=== PATIENT | female | born 1985 | race Caucasian/White ===

== ENCOUNTER 2022-03-25 08:00 | Outpatient (RCR) | payer MEDICARE, MEDICAID, SELFPAY ==
--- NOTE | 2022-03-25 10:10 | BH.SGPN.GN ---
Behaviors/Verbalizations/Mental Status: []Eye contact is fair. Alert and oriented. Motor activity is appropriate. Appearance is casual. grooming is appropriate. Speech is Appropriate. Mood is dysthymic. Affect is constricted. Thoughts are linear and logical. No evidence of psychosis or hallucinations. Client Response/Progress/Benefit: []Client active participate AEB listening attentively to others and providing contributions throughout. The group identified barriers to managing emotions such as unable to identify the emotion, negative self-talk, catastrophizing, jumping to conclusions, personalizing, and reading other?s body language. Client stated she often doesn't know how to express her emotions. Client engaged in activity, able to manage emotions in the moment. Client benefited from session to gain understanding on the importance of managing emotions to improve daily functioning. Client will continue IOP to increase healthy coping skills, challenge negative thoughts, and prevent decompensation.
--- NOTE | 2022-03-28 10:05 | BH.SGPN.GN ---
Behaviors/Verbalizations/Mental Status: [] Eye contact is good. Motor activity is appropriate. Appearance is casual. Speech is Appropriate. Mood is anxious. Affect is congruent. Thoughts are linear and logical. No evidence of psychosis. Client Response/Progress/Benefit: [] Pt participated at times during the group discussions. Participated during interactive discussion on defining conflict (internal/external) and possible benefits to conflict. Attentive during psychoeducation on conflict styles and engaged during small group activity in which peers identified the benefits and consequences to each conflict style. Pt identified that her primary conflict style is avoidant and accommodating. Shared that it is challenging for ther to say no and will put on a mask that she is fine with everything which is exhausting. Benefited from increase awareness of the impact of conflict styles in mental health. Will continue in IOP to improve functioning, stabilze mood, and increase healthy coping. Narrative Note: []
--- NOTE | 2022-03-28 11:05 | BH.SGPN.GN ---
Behaviors/Verbalizations/Mental Status: []Pt alert and oriented, casually dressed and groomed. Eye contact good. Motor activity appropriate. Speech within normal limits. Affect congruent, mood depressed and anxious. Thoughts linear, logical, no signs of hallucinations or delusions. Client Response/Progress/Benefit: []Pt engaged in session AEB contributing to discussion and engaging in activity. Pt did well to review current conflict style and its impact on mental health. Attentive and taking notes during discussion on strategies for more effectively managing conflict in personal life.? Pt participated in activity and did well to talk through choices with peers. Pt given handout on fair fighting rules and identified that they want to work on reducing stonewalling with her supports and finding a way to compromise. ?Appeared to benefit from gaining strategies to help pt better manage conflict. Will continue IOP tx to gain healthy coping skills, reduce negative thinking patterns, and improve daily functioning. ? Narrative Note: []
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
--- NOTE | 2022-03-28 12:33 | BH.PSY.EVA_ITS ---
Initial Treatment Plan Patient Information Visit Information: ADMISSION DATE: EXPECTED LOS: 4-6 weeks Problems/Symptoms Problem #1:: Depression Symptom:: Sadness, anhedonia, guilt, hopelessness, worthlessness, passive thoughts of , passive suicidal ideation intermittent, thoughts of self- harm. Problem #2:: Anxiety Symptom:: Worry, rumination, panic attacks, nightmares
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
[2022-03-30 11:34] VITALS: BP 110/67; PULSE 73
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
== END 2022-04-06 23:59 ==
LOC: BHIOP 08:00
PROVIDERS: Referring Provider Psychiatry & Neurology Psychiatry; Visit Provider Psychiatry & Neurology Psychiatry
DX: F33.2 Major depressive disorder, recurrent severe without psychotic features (principal); F41.1 Generalized anxiety disorder; F43.10 Post-traumatic stress disorder, unspecified
CPT/HCPCS: S9480; 90834; 90853

== ENCOUNTER 2022-04-07 08:22 | Outpatient (RCR) | payer MEDICARE, MEDICAID, SELFPAY ==
[2022-04-07 00:43] VITALS: BP 110/67; PULSE 73
--- NOTE | 2022-04-11 11:37 | BH.COMM ---
Communication Note - Communication with Client Communication Note: Pt called this AM still ill. Due to her immune disorder small colds or infections can be very intense and last for longer periods than the average person. Informed her to keep us updated regarding her status.
--- NOTE | 2022-04-13 11:38 | BH.COMM_ITS ---
Communication Note - Communication with Client Communication Note: Pt called this AM stating that she was at urgent call last evening. She was given medications for sinus medication and possible bronchitis. Plan is to return to IOP on 04/18/22 is she is feeling better. If she cannot make it to IOP next week will discuss possibility of discharge with plan to re- admit when feeling better.
--- NOTE | 2022-04-18 10:00 | BH.SGPN.GN ---
Behaviors/Verbalizations/Mental Status: [] Eye contact is fair. Motor activity is appropriate. Appearance is casual. Speech is Appropriate. Mood is depressed. Affect is constricted. Thoughts are linear and logical. No evidence of delusions or hallucinations. Client Response/Progress/Benefit: [] Pt was an active participant in group discussions and activity. Attentive during psychoeducation and provided insight into obstacles in the way of mental wellness. Pt shared her picture depicting her current mental health reality with the group. She described her current reality as feeling like she is constantly pretending to be okay and feeling disconnected with others and her feelings. Pt's desired reality is feeling more connected with others, not having to pretend to feel, and feeling more stable. Pt identified barriers that get in the way of desired reality include: lack of self-care, poor boundaries, not feeling heard, toxic people, and using unhealthy coping skills. Benefited from taking look at current mental health state and obstacles for progress. Will continue in IOP to increase healthy coping skills, challenge negative thinking, and prevent decompensation.
--- NOTE | 2022-04-18 11:08 | BH.SGPN.GN ---
Behaviors/Verbalizations/Mental Status: []Pt alert and oriented, casually dressed and groomed. Eye contact good. Motor activity appropriate. Speech within normal limits. Affect constricted, mood stressed. Thoughts linear, logical, no signs of hallucinations or delusions. Client Response/Progress/Benefit: []Pt engaged during activity, encouraging peers and contributed as group brainstormed ideas on how to cope with internal barriers that keep pts stuck from moving towards goals. Able to identify barriers to desired reality. Identified barriers to current reality to include: lack of self-care, poor boundaries, fear of not being heard, and people pleasing. Pt wants to work on overcoming the barrier of lack of self-care by writing down things she used to do before having a kid and see if she would try these again. Benefited from group by identifying obstacles and solutions to desired reality.? Pt will continue IOP tx to prevent decompensation, increase awareness of healthy coping skills, and improve daily functioning. ? Narrative Note: []
--- NOTE | 2022-04-19 10:10 | BH.SGPN.GN ---
Behaviors/Verbalizations/Mental Status: [] Eye contact is good. Motor activity is appropriate. Appearance is casual. Speech is Appropriate. Mood is anxious. Affect is congruent. Thoughts are linear and logical. No evidence of psychosis. Client Response/Progress/Benefit: [] Pt was an active participant in group discussions and experiential activity. Attentive during psychoeducation. Pt provided input during discussion on types of social supports which included; family, friends, PCP, mental health providers, support groups, pets, ourselves, community classes, etc. Pt along with the group identified mental health benefits of social support which patient and group identified as; it can help with emotional release, help one to feel heard, validation, distraction, they can encourage us, provide motivation, provide accountability, and boost our mood. Pt along with peers also worked together to identify obstacles to utilizing support which included; feeling like one doesn't deserve support, past negative experiences, cognitive distortions, and avoidance/mood. Benefited from increased awareness of mental health benefits of social support and obstacles that prevent one from utilizing support. Will continue in IOP to prevent decompensation, stabilize mood, and increase healthy coping skills. Narrative Note: []
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
--- NOTE | 2022-04-20 10:10 | BH.SGPN.GN ---
Behaviors/Verbalizations/Mental Status: []Pt alert and oriented, casually dressed and groomed. Eye contact good. Motor activity appropriate. Speech within normal limits. Affect constricted, mood depressed and anxious. Thoughts linear, logical, no signs of hallucinations or delusions. Client Response/Progress/Benefit: []Pt was an active participant in group discussions. Participated with peers in experiential activity. Pt participated in an interactive discussion with peers in which they worked together to define what coping skills are. Group then identified unhealthy coping skills which included; isolating, sleeping to avoid, drugs and alcohol, and poor boundaries. Pt displayed insight that she struggles with making herself a priority which leads to lack of self-care and pt is learning that some of her old coping skills were unhealthy. Reflected that this adds more stress to pt?s life and worsens mental health symptoms. Benefited from increased awareness and education the benefits of having a healthy coping repertoire and consequences of unhealthy coping on mental health and relationships. Will continue IOP tx to prevent decompensation, gain healthy coping skills, and increase healthy boundaries. Narrative Note: []
--- NOTE | 2022-04-20 11:54 | PCM.BH.PN ---
Progress Note Progress Note: History of Present Illness/Interim History: The patient is a 37-year-old single, female with a history of PTSD, depression and anxiety who is seen in follow-up at the [facility] behavioral health IOP program. I last saw the patient 3 weeks ago and at that time we began slowly weaning her Cymbalta, starting her on Trental X, and planning to discontinue her Effexor later. The patient states that she missed the last week and a half due to an illness but feels that she is learning valuable skills in the IOP program. She is tolerating the Trental X well but did not start it until 12 days ago. She feels that she has less fatigue now and feels more awake during the day. She is feels that her mood is less depressed than it was before. She denies any hopelessness now. Her sleep has improved also. She is stressed lately because her mother is having mental health issues and her mother does not want to be left alone so the patient has to spend all her time with her mother. The patient states that she is planning to ask her brother to help with her mother. She denies any cutting since early March or thoughts of self-harm. She denies any suicidal ideation now. Still has occasional panic attacks. She denies also active suicidal ideation, homicidal ideation, hallucinations or delusions. Current Psychiatric Medications: [] Cymbalta 60 mg p.o. daily (decreased 3 weeks ago); Trintellix 5 mg p.o. daily (x12 days); Effexor XR 37.5 mg p.o. daily (plans to D see this in 2 days); BuSpar 30 mg p.o. as needed daily; Xanax 2 mg p.o. up to 2 times a day prescribed by outpatient provider. Mental Status Examination: [] The patient is a 37-year-old female who appears normal for stated age and is casually dressed and groomed with good hygiene. She continues to have a grayish-bluish hue in her periorbital areas bilaterally. She is ambulatory with a normal gait and has no psychomotor agitation or retardation. She is cooperative and pleasant during the interview. Eye contact is good and speech is normal rate and rhythm and fluent with no pressure. Mood is mildly depressed to moderately depressed. Affect is full and normal. Thought process is goal-directed and organized. Thought content: The patient feels hopeful for the future. There is no evidence of passive suicidal ideation. There is still occasional evidence of passive thoughts of but not every day. There is no evidence of active suicidal ideation, plan for suicide, homicidal ideation, hallucinations or delusions. Reality testing is intact. Insight is good. Impulsivity is moderate. Judgment is intact. Diagnoses: [] 1.Major depressive disorder, recurrent, severe without psychosis 2. PTSD 3. Generalized anxiety disorder 4. Primary support issues 5. Cluster B traits Plan: [] The patient will continue the IOP program at [facility] as the structure, support, education and group therapy will hopefully prevent worsening of the patient's symptoms that might require hospitalization. She felt safe during the interview and if it anytime she does not feel safe she will let us know or go to the emergency room. The risk, options, possible complications and side effects of the medications were again discussed with the patient including the possibility of withdrawal side effects when she discontinues her Effexor. The patient will follow the plan we outlined last appointment which includes discontinuing her Effexor in 2 days. I will see the patient in follow-up in 2 weeks and she will continue to follow-up with her outpatient providers. If she has withdrawal symptoms when stopping Effexor she will let us know and we will wean it more slowly.
--- NOTE | 2022-04-25 10:15 | BH.SGPN.GN ---
Behaviors/Verbalizations/Mental Status: []Client alert and oriented, casually dressed and groomed. Eye contact good. Motor activity appropriate. Speech within normal limits. Affect congruent, mood anxious. Thoughts linear, logical, no signs of hallucinations or delusions. Client Response/Progress/Benefit: []Client receptive to session AEB contributing to discussion, as well listening attentively to others, and taking notes. Worked with group to brainstorm the positive and negative aspects of stress on physical and mental health. Group did well to identify the benefits of stress as well as the impact of distress on performance, relationships, and mental health. Client struggled with internalizing information discussed; however, with further assistance client identified their personal top stressors as: family/caregiving responsibilities and finances. Client reports when the stress overflows client reacts with decreased self-care, isolation, and numbing herself. Client seemed to benefit from increased awareness of current stressors and impact stress has on mental health. Recommended to continue IOP tx to further improve stress management and healthy boundary setting, improve mental health sx management, and prevent decompensation. Narrative Note: []
--- NOTE | 2022-04-25 11:15 | BH.SGPN.GN ---
Behaviors/Verbalizations/Mental Status: []Pt alert and oriented, casually dressed and groomed. Eye contact good. Motor activity appropriate. Speech within normal limits. Affect congruent, mood calm. Thoughts linear, logical, no signs of hallucinations or delusions. Client Response/Progress/Benefit: []Pt engaged participant AEB listening attentively to others and contributing to discussion. Attentive during psychoeducation on the 4 A's of Coping with Stress (Avoid, Alter, Adapt, Accept). Participated in experiential activity in which group members had to utilize stress management skills in the moment. Pt did well to problem-solve and express ideas to peers. Pt engaged in review of the 4 A?s to reducing stress. Pt reported she would like to work on the stressor of poor self-care by altering her current approach of not engaging in self-care. pt stated she will start making herself shower and wash her hair. Benefited from processing in the moment stress management strategies and identifying new ways to cope with stress. Will continue in IOP tx to prevent decompensation, increase healthy boundaries and increase use of healthy coping.
--- NOTE | 2022-04-27 10:05 | BH.SGPN.GN ---
Behaviors/Verbalizations/Mental Status: []Eye contact is good. Motor activity is appropriate. Appearance is casual. Speech is Appropriate. Mood is anxious. Affect is congruent. Thoughts are linear and logical. No evidence of psychosis. Client Response/Progress/Benefit: []Pt participated during the group discussion. Attentive during psychoeducation and actively engaged during experiential activity. Participated during interactive discussion on aspects of fixed mindset. Group identified several aspects of fixed mindset which included; inflexible, belief that one cannot grow, absolute thinking, and all of one's skills, traits, and behaviors are set in stone and can't change. Pt did well in experiential activity in which they were given a seemingly impossible task and were asked to identify fixed thoughts that arose. Group then identified personal examples of fixed thinking in which pt shared personal fixed thoughts as: ?I?m too tired?, ?I don?t care?, and ?I?m never going to get better?. Benefited from increased understanding of personal fixed mindsets and how they can impact mental health. Will continue in IOP to prevent decompensation, continue to improve mood stability, and promote self-care and healthy boundary setting. Narrative Note: []
--- NOTE | 2022-04-27 11:05 | BH.SGPN.GN ---
Behaviors/Verbalizations/Mental Status: []Pt alert and oriented, casually dressed and groomed. Eye contact good. Motor activity appropriate. Speech within normal limits. Affect congruent, mood euthymic and anxious. Thoughts linear, logical, no signs of hallucinations or delusions. Client Response/Progress/Benefit: []Pt engaged during activity and discussion AEB providing some input, connecting with peers, as well as taking notes throughout. Pt did well to engage as group worked on identifying characteristics and benefits of adopting a growth mindset. Worked with fellow participants in reframing the example fixed thoughts into growth mindset thoughts. Reframed personal fixed thought of ?I don?t care about things? with growth mindset thought of ?I can get better and feel less overwhelmed? Benefitted from discussing benefits of growth mindset and brainstorming strategies for prompting growth-mindset. Pt is gaining many coping skills, but she continues to struggle with setting boundaries with her supports. Will continue IOP tx to reduce avoidance, increase self-esteem, and improve boundary setting Narrative Note: []
--- NOTE | 2022-04-27 14:54 | BH.MDN_ITS ---
Multi-Disciplinary Note - Note 45-min Individual Time Started:: 11:55 Date: 04/27/22 Purpose of session/treatment goals addressed:: To work on goal #1 & #2 of client's tx plan by challenging distorted thought patterns and setting small goals. Another goal was to review tx progress Eye Contact:: Good Motor Activity:: Appropriate Appearance:: Neat, Casual Speech:: Appropriate Mood:: Anxious Affect:: Congruent Thoughts:: Linear, Logical, Racing, No evidence of hallucinations/delusions noted Staff Interventions:: thought challenging, motivational interviewing, CBT techniques, strengths perspective, goal setting Client Response:: Client responded well to session, open to meeting with therapist. Client stated the relationship with her mother continues to be tense and her living environment is often stressful as client does not get a lot of self-care time due to mom?s current mental health needs. Client is worried that she will decompensate if she is not able to set a boundary soon and begin to either see improvements with her mother?s mental health or begin to receive more help with caregiving responsibilities. Discussed several attempts to engage her brother in caregiving; however, continues to struggle with being assertive with communicating her needs. Shared feeling she needs to make herself ?small? and not be a burden to others for most of her life. Discussed that this has led to going out of her way to ?people please? and do things for others but not ask for support in return. Shared that she has a desire to feel more comfortable with allowing herself to ?take up space? but struggles with not feeling selfish or as though she is inconveniencing others in doing so. Able to connect this with childhood medical needs and feeling she needs to ?repay the favor? for the amount of extra support she has had to ask for growing up. Did well to work with therapist on challenging these thoughts and identifying evidence against this. Able to recognize that she would not expect others to have to earn the ability to establish boundaries or make time for self-care. Identified a small goal of starting to ask for more support by making plans to ask her brother to come stay with her mother while client attends a [place] [employer] party with her boyfriend. Client and therapist spent remainder of session identifying supportive statements she can remind herself of to encourage following through with this goal. Risks/Concerns:: Client denies any active suicidal ideations, plan, or intent as of 04/27/22. Progress Toward Goals/Plan:: Client admits to some regression in symptoms over the past week due to family stress and self-reported lack of self-care. Client continues to have good attendance when feeling physically capable of attending group and is an active group member. Client does however continue to miss first group out of anxiety about sharing personal information with others. Willing to continue to work on this. Client often minimizes her mental health wins, as client is still functioning better and has been able to identify the importance of establishing and reinforcing healthy boundaries with her mother which is progress. Client continues to endorse low energy, negative self-talk, avoidance, and anxiety. Client will continue IOP tx to prevent further decompensation and increase the use of healthy coping skills. Time Stopped:: 12:40
--- NOTE | 2022-04-27 14:54 | BH.MTP_ITS ---
Treatment Plan Review Date of Admission:: 03/25/22 Date of Treatment Plan Review:: 04/27/22 Admitting Diagnoses:: 1. Major depressive disorder, recurrent, moderate. 2. PTSD. 3. Generalized anxiety disorder Current Diagnoses:: 1. Major depressive disorder, recurrent, moderate. 2. PTSD. 3. Generalized anxiety disorder Patient's Response to Treatment:: Pt has been mostly consistent with attendance, though has missed two weeks of sessions due to illness. She has also struggled with tardiness due to anxiety about being in the first group session. Pt is actively working on improving these areas. Engaged in individual counseling. Attentive in group counseling and active engagement. Pt continues to complete all homework provided and reports sharing what she learns with her supports. Status of Current Problems and Symptoms: Per pt self-report, she indicates a reduction in overall symptoms. Discussed increased insight into what is impacting her mental health and specific triggers/stressors maintaining depre ssive and anxious sx. Does reports some reduction of depression and anxiety. Pt also denies any active suicidal ideations in the past 2 weeks. Continues to report sx are impeding her daily functioning and continuing to cause tension in relationships however. Pt difficulties with communicating her mental health needs and setting boundaries may be significantly contributing to ongoing sx. Problem #1 Problem Name:: Depression, hopelessness, passive SI Status of Goals:: Pt has showed a reduction in depression, per her report. Pt has made progress on Obj1 and is able to identify 2-3 healthy skills to better manage her depressive sx; however, continues to struggle with consistent implementation and asserting her self-care needs. Progress on obj2 as she reports improved ability to identify and challenge negative thought patterns; however, current stressors continue to reinforce feelings of hopelessness and prevent client from making consistent progress in these areas. Team Recommendations:: maintain current goals and plan. Pt is learning healthy coping strategies however is still early in utilizing these skills consistently and effectively. Problem #2 Problem Name:: Anxiety, panic Status of Goals:: According to pt, she has seen some minimal reduction in anxiety, however this continues to be a primary stressor and is reinforced by pt current family stress. Obj1-She is able to identify triggers and coping skills, including grounding and thought challenge skills for managing anxiety. Pt however struggles with consistent implementation and focus on external stressors without yet addressing these stressors in a notable way continues to reinforce anxiety sx. Obj2- Pt has had psychoeducation on cognitive distortions and can identify her own distorted thinking patterns maintaining anxiety after the fact, though struggles in doing so in the moment and often needs assistance in identifying and processing these. Will continue to work on this. Team Recommendations:: Maintain current goals, continue to work on boundaries an d communication goals.
--- NOTE | 2022-04-28 10:10 | BH.SGPN.GN ---
Behaviors/Verbalizations/Mental Status: [] Eye contact is good. Motor activity is appropriate. Appearance is casual. Speech is Appropriate. Mood is anxious. Affect is congruent. Thoughts are linear and logical. No evidence of psychosis. Client Response/Progress/Benefit: [] Pt was an active participant in group discussions and experiential activity. Attentive during psychoeducation. Participated along with peers on working to define locus of control and provide examples of internal and external locus of control. Interactive discussion between group members, pt, and therapist on characteristics of internal locus of control which included; takes responsibility for actions, less influenced by others and increased confidence. Some characteristic identified by patient and peers for external locus of control included; others have more influence and control, decreased motivation to make changes if one believes that mood/thoughts/self-esteem are based on others. Active and engaged during experiential activity and was able to see correlations between activity and emotions/perspectives associated with internal vs external locus of control. Benefited from increased insight and awareness of internal vs external locus of control and how this could impact mental health. Will continue in IOP to prevent decompensation, increase healthy coping, improve functioning. Narrative Note: []
--- NOTE | 2022-04-28 11:05 | BH.SGPN.GN ---
Behaviors/Verbalizations/Mental Status: []Client alert and oriented, casually dressed and groomed. Eye contact good. Motor activity appropriate. Speech within normal limits. Affect congruent, mood anxious and euthymic. Thoughts linear, logical, no signs of hallucinations or delusions. Client Response/Progress/Benefit: []Client responded well to session, actively engaged during psychoeducation on circles of control including areas in which we have control, some influence, or concern but no control over in daily life. Client completed a worksheet in which they identified what areas their own current stressors may fall into. Client identified having most control over: the coping skills she tries and her reaction to stressors; some control over: relationships and the communication within them, boundaries, and ability to accomplish her goals; and no control over: [place] her mother deals with her own mental health issues. Group then worked together on identifying steps to begin using an internal locus of control when addressing current stressors. Client identified wanting to focus on more effectively being able to set healthy boundaries with her mom. Noted plans to do so by reminding herself it?s okay to say ?no? and by starting with establishing small boundaries. Client will continue IOP tx to improve mood stability, begin establishing healthier boundaries to improve anxiety management, and prevent decompensation. Narrative Note: []
--- NOTE | 2022-05-04 10:08 | BH.SGPN.GN ---
Behaviors/Verbalizations/Mental Status: []Pt alert and oriented, casually dressed and groomed. Eye contact good. Motor activity appropriate. Speech within normal limits. Affect congruent, mood stressed. Thoughts linear, logical, no signs of hallucinations or delusions. Client Response/Progress/Benefit: []Pt participated at times during the group discussions. Participated during interactive discussion on defining conflict (internal/external) and possible benefits to conflict. Attentive during psychoeducation on conflict styles and engaged during small group activity in which peers identified the benefits and consequences to each conflict style. Pt identified that their primary conflict styles as avoiding and accommodating. Pt reports seeing many drawbacks of these styles, but pt struggles with the guilt of asserting her needs and anxiety of addressing issues. Benefited from increased awareness of the impact of conflict styles in mental health. Will continue in IOP to reduce avoidance, increase skills to set healthy boundaries, and improve daily functioning. Narrative Note: []
--- NOTE | 2022-05-04 10:40 | PCM.BH.PN ---
Progress Note Progress Note: History of Present Illness/Interim History: Patient is a 37-year-old single female with a history of PTSD, depression and anxiety who is seen in follow-up at the [facility] behavioral health IOP program. I last saw the patient 2 weeks ago and at that time we continued the weaning of the Effexor and Cymbalta and initiation of Trental X. The patient discontinued her Effexor XR on April 22, 2022. She had some mild to moderate will withdrawal symptoms for the first few days but she did the symptoms completely resolved after 1 week. She feels that she is much less depressed than she was before and that the Trental X is helping her. She is tolerating the Trental X well. According to the staff the patient appears less anxious and is more engaged in the program. She has stressors remaining especially around her mother's health issues but she is learning coping skills to help with this. She states that she is coping with stress better and feels kind of like a new person. She still has occasional panic attacks but they are much less than before and she is able to control them. She denies passive thoughts of , thoughts of self-harm, suicidal ideation, homicidal ideation, hallucinations or delusions. Current Psychiatric Medications: [] Cymbalta 60 mg p.o. daily (decreased 5 weeks ago from 90 mg); Effexor XR discontinued after weaning on April 22, 2022; Trental X 5 mg p.o. daily (x26 days); BuSpar 30 mg p.o. as needed daily; Xanax 2 mg p.o. up to 2 times a day prescribed by outpatient provider. Mental Status Examination: [] Patient is a 37-year-old female who appears normal for stated age and is casually dressed and groomed with good hygiene. The grayish-bluish hue in her periorbital areas bilaterally remains. She is ambulatory with a normal gait and has no psychomotor agitation or retardation. She is cooperative and pleasant during the interview. Speech is normal rate and rhythm and fluent with no pressure. Eye contact is good. Mood is mildly depressed. Affect is full and normal. Thought process is goal-directed and organized. Thought content: The patient continues to feel hopeful for the future. There is no evidence of passive thoughts of , passive suicidal ideation, plan for suicide, homicidal ideation, hallucinations or delusions. Reality testing is intact. Insight is good. Impulsivity is moderate. Judgment is intact. Diagnoses: [] 1. Major depressive disorder, recurrent, moderate 2. PTSD 3. Generalized anxiety disorder 4. Cluster B traits 5. Primary support issues Plan: [] The patient will continue the IOP program at [facility] as the structure, support, education and group therapy will hopefully prevent worsening of the patient's symptoms. She felt safe during the interview and if it anytime she does not feel safe she will let us know or go to the emergency room. The risks, options, possible complications and side effects of the medications were again discussed with the patient and she understands accepts these. The patient agrees to decrease her Cymbalta to 30 mg p.o. daily for 2 weeks and then discontinue. She will also increase her Trintellix to 10 mg p.o. daily at the same day she decreases her Cymbalta. Prescription is sent in for the 10 mg dose of Trintellix. She will continue to follow-up with her outpatient providers and I will see the patient in follow-up in several weeks at the IOP program. Patient will be encouraged to slowly wean off her Xanax as the Trental X takes effect.
--- NOTE | 2022-05-04 11:02 | BH.MDN ---
Multi-Disciplinary Note - Note 45-min Individual Time Started:: 11:15 Time Stopped:: 12:05
== END 2022-05-07 23:59 ==
LOC: BHIOP 08:22
PROVIDERS: Referring Provider Psychiatry & Neurology Psychiatry; Visit Provider Psychiatry & Neurology Psychiatry
DX: F33.2 Major depressive disorder, recurrent severe without psychotic features (principal); F43.10 Post-traumatic stress disorder, unspecified; F41.1 Generalized anxiety disorder; Z79.899 Other long term (current) drug therapy
CPT/HCPCS: S9480; 90834; 90853

== ENCOUNTER 2022-05-10 07:28 | Outpatient (RCR) | payer MEDICARE, MEDICAID, SELFPAY ==
[2022-05-08 00:34] VITALS: BP 110/67; PULSE 73
--- NOTE | 2022-05-11 11:03 | BH.MDN ---
Multi-Disciplinary Note - Note 45-min Individual Time Started:: 11:46 Time Stopped:: 12:25
--- NOTE | 2022-05-11 11:59 | PCM.BH.PN ---
Progress Note Progress Note: History of Present Illness/Interim History: [] The patient is a 37-year-old single female with a history of PTSD, depression and anxiety who is seen in follow-up at the [facility] behavioral health IOP program. I last saw the patient 1 week ago and at that time we continued the slow process of weaning her Cymbalta and increasing her Trintellix. Her Trintellix was increased to 10 mg 1 week ago and her Cymbalta was decreased to 30 mg 1 week ago. The patient states that she is doing not very good. On 's Shayna the patient had an upsetting incident for her which ended in her picking up a knife in the kitchen and holding it to her throat. The patient states that she was originally just thinking of cutting and was getting on the back kitchen and get a knife and go cut in the bathroom due to an argument or discourse with her boyfriend where she felt he snapped at me and consequently she felt bad about herself. But she says spontaneously she picked up the knife and held it to her throat and was thinking about suicide. Her mother and boyfriend took the knife away from her and actually the patient admits that this incident resulted in them having a family meeting with her counselor and this has resulted in her brother offering to help the patient deal with her mother. Patient has to be home with her mother 28/11 because mother refuses to be alone and the boyfriend has to see the patient at the mother's house. Patient says that suicidal thoughts have resolved and she currently feels safe. She is tolerating the Trental X well. She denies passive thoughts of , homicidal ideation, hallucinations or delusions. She is not no longer having the suicidal ideation and thoughts of self-harm that she had on ' Shayna and has not had it since then. Current Psychiatric Medications: [] Cymbalta 30 mg p.o. daily (decreased 1 week ago and a continued weaning process); Effexor XR was discontinued on April 22, 2022 after weaning; Trintellix 10 mg p.o. daily (on this dose 1 week); BuSpar 30 mg p.o. as needed daily; (Xanax 2 mg up to 2 times a day prescribed by outpatient provider.) Mental Status Examination: [] The patient is a 37-year-old female who appears normal for stated age and is casually dressed and groomed with good hygiene. She is ambulatory with a normal gait and has no psychomotor agitation or retardation. She is cooperative during the interview. Eye contact is good and speech is normal rate and rhythm and fluent with no pressure. Mood is depressed. Affect is constricted and tearful at times. Thought process is goal-directed and organized. Thought content: There is no evidence of passive thoughts of , suicidal ideation, homicidal ideation, hallucinations or delusions. There is no evidence of thoughts of self-harm currently. Reality testing is intact. Insight is good. Impulsivity is moderate to high. Judgment is intact. Diagnoses: [] 1. Major depressive disorder, recurrent, moderate 2. PTSD 3. Generalized anxiety disorder 4. Strong cluster B traits 5. Primary support issues Plan: [] The patient will continue the IOP program at [facility] as the structure, support, education and group therapy will hopefully prevent worsening of the patient's symptoms which could require hospital admission. The patient felt safe during the interview and if it anytime she does not feel safe she will let us know or go to the emergency room. The risk, options, possible complications and side effects of medications were again discussed with the patient and she understands accepts these including the side effects of the weaning process. Due to the stress ongoing in the patient's current living situation patient was given the option of staying on the Cymbalta 30 mg p.o. daily for now for the next 3 or 4 weeks and then discontinue it. She will continue her Trintellix at 10 mg p.o. daily and we may increase at the next visit after she has been on it for at least 3 weeks. Refill prescription is sent in for 30 mg Cymbalta enough to get her for the next few weeks. She will continue to follow-up with her outpatient providers and I will see the patient in follow-up in 2 weeks. The plan is that the patient will be encouraged to slowly wean off of her Xanax once the Trental X takes effect. This will be done by her outpatient provider.
--- NOTE | 2022-05-12 10:05 | BH.SGPN.GN ---
Behaviors/Verbalizations/Mental Status: []Pt alert and oriented, casually dressed and groomed. Eye contact good. Motor activity appropriate. Speech within normal limits. Affect congruent, mood anxious. Thoughts linear, logical, no signs of hallucinations or delusions. Client Response/Progress/Benefit: []Pt was an active participant in group discussions. Attentive during psychoeducation and participated in interactive discussions in which group defined self-care, discussed the benefits to self-care, and identified common myths surrounding self-care. Pt shared that self-care has always been hard for her because she constantly takes care for others. Pt and peers broke into smaller group and worked together to bust the myths associated with self-care. Pt?s group worked on myths of self-care is selfish, you should be able to ?push through,? and self-care takes too much time. Benefited from increased awareness of the self-care and its benefits. Progress noted in pt?s increased resilience when pt experiences a setback. ?Will continue in IOP to reduce negative thinking patterns, improve boundary setting skills, and increase self-compassion. ? Narrative Note: []
--- NOTE | 2022-05-12 11:10 | BH.SGPN.GN ---
Behaviors/Verbalizations/Mental Status: []Pt alert and oriented, casually dressed and groomed. Eye contact good. Motor activity appropriate. Speech within normal limits. Affect congruent, mood anxious. Thoughts linear, logical, no signs of hallucinations or delusions. Client Response/Progress/Benefit: []Pt engaged participant AEB completing self-assessment worksheet and providing some input throughout discussion. Participated in group discussion on the various areas of self-care. Pt completed worksheet identifying current self-care practices and what self-care activities pt wants to start using. Pt selected psychological self-care to begin practicing more consistently. Pt plans to do this by learning or pursuing new or old hobbies. Appeared to benefit from completing the self-care evaluation and gaining insights into current self-care practices, as well as identifying areas in which she would like to improve upon. Will continue IOP tx to prevent decompensation, improve boundaries with supports, and improve ability to maintain mood stability.
--- NOTE | 2022-05-13 10:08 | BH.SGPN.GN ---
Behaviors/Verbalizations/Mental Status: []Pt alert and oriented, casually dressed and groomed. Eye contact good. Motor activity appropriate. Speech within normal limits. Affect congruent, mood stressed. Thoughts linear, logical, no signs of hallucinations or delusions. Client Response/Progress/Benefit: []Pt was engaged participant AEB pt listening attentively to others and nodding. Attentive during psychoeducation on communication styles. Assisted group with identifying barriers of effective communication which included: mind-reading, body language, communicating with behaviors, and being vague. Pt reports that she most often uses passive aggressive or passive communication. Pt shared that being passive results in pt feeling like a burden to others, resentment, and eventually pt exploding. Benefited from increased awareness of different communication barriers, styles, and the importance of communicating effectively to improve mental wellness. Will continue IOP tx to improve distress tolerance skills, reduce avoidance, and increase use of self-care skills. ? Narrative Note: []
--- NOTE | 2022-05-13 11:10 | BH.SGPN.GN ---
Behaviors/Verbalizations/Mental Status: []Client alert and oriented, casually dressed and appropriately groomed. Eye contact good. Motor activity appropriate. Speech WNL. Affect congruent, mood euthymic. Thoughts linear, logical, no signs of hallucinations or delusions. Client Response/Progress/Benefit: []Client responded well to session AEB client listening attentively to others and providing input during group discussion on the pay offs and costs of the different communication styles. Client able to connect how current communication style impacts mental health. Client engaged in activity, used assertive communication throughout in order to accomplish task. Connected with peers comments about importance of using assertive communication. Client reported she wants to work on being able to say no. Client seemed to benefit from increasing awareness of healthy strategies to improve communication. Will continue IOP tx to continue use of healthy coping, challenge distorted thoughts, and prevent decompensation.
--- NOTE | 2022-05-18 11:10 | BH.SGPN.GN ---
Behaviors/Verbalizations/Mental Status: []Client alert and oriented, casually dressed and groomed. Eye contact good. Motor activity appropriate. Speech within normal limits. Affect congruent, mood euthymic. Thoughts linear, logical, no signs of hallucinations or delusions. Client Response/Progress/Benefit: []Client was a active participant in group discussion AEB providing contributions throughout group and listening attentively to others. Client able to connect how current safety behaviors are reinforcing anxiety. Attentive during psychoeducation on anxiety management skills. The group practiced belly breathing and chair yoga in session. Engaged and attentive during group brainstorm of healthy anxiety reduction skills. Appeared to benefit from practicing in the moment coping skills and increasing repertoire of anxiety management skills. Client will continue IOP tx to improve daily functioning, improve ability to set and maintain healthy boundaries, and prevent decompensation.
--- NOTE | 2022-05-19 10:10 | BH.SGPN.GN ---
Behaviors/Verbalizations/Mental Status: []Pt alert and oriented, casually dressed and groomed. Eye contact good. Motor activity appropriate. Speech within normal limits. Affect congruent, mood anxious and euthymic. Thoughts linear, logical, no signs of hallucinations or delusions. Client Response/Progress/Benefit: []Pt responded well to session AEB taking notes throughout, providing input,and listening attentively to others. Pt was actively engaged throughout group activity identifying famous individuals and how they overcame failure to be successful. Pt helped group identify how fear of failure can impact mental health and relationships. Pt personally identified that fear of failure can lead to insecurity and a sense of losing oneself. Pt participated in experiential activity and used group for support as needed. Appeared to benefit from increased knowledge of fear of failure. ?Will continue IOP tx to prevent decompensation, challenge all or nothing thinking, and increase mood stability. ? Narrative Note: []
--- NOTE | 2022-05-19 13:49 | BH.MDN ---
Multi-Disciplinary Note - Note 30-min Individual Time Started:: : Date: 05/19/22 Time Stopped:: 11:
--- NOTE | 2022-05-24 10:10 | BH.SGPN.GN ---
Behaviors/Verbalizations/Mental Status: [] Eye contact is good. Motor activity is appropriate. Appearance is casual. Speech is Appropriate. Mood is euthymic. Affect is full. Thoughts are linear and logical. No evidence of psychosis. Client Response/Progress/Benefit: [] Pt was an active participant in group discussion. Attentive during psychoeducation. Engaged and participated in experiential activity. Pt along with peers. worked together to define pitfalls in relation to mental health. Group was able to identify several common examples of pitfalls which included; negative automatic thoughts, sad songs, isolation, not communicating, self-harm, impulsive spending, over-committing oneself, and self-sabotage. Able to correlate experiential activity and topic of pitfalls. Able to identify strategies to use in activity (as well as in life) to overcome or manage mental health pitfalls. Benefited from increased understanding of types of common pitfalls that impact mental health. Will be discharged from [facility] today. Narrative Note: []
--- NOTE | 2022-05-24 11:10 | BH.SGPN.GN ---
Behaviors/Verbalizations/Mental Status: []Pt alert and oriented, casually dressed and groomed. Eye contact good. Motor activity appropriate. Speech within normal limits. Affect congruent, mood euthymic. Thoughts linear, logical, no signs of hallucinations or delusions.? Client Response/Progress/Benefit: []Pt receptive of session, engaged throughout AEB pt?contributing to discussion, as well as taking notes.? Pt and group processed how the emotions and perspective of the group impacted the activity positively and negatively at times. Group worked together to identify different coping skills to help manage pitfalls. Pt identified pitfalls they struggle with such as?going ?too fast? and looking for quick fixes, pouring effort into people who do not want to change, and difficulty setting and maintaining boundaries.?Pt plans to work on these pitfalls by?continuing to reinforce her boundaries with her mother and utilizing self-care. Benefited from identifying personal pitfalls and strategies to overcome these pitfalls. Will discharge IOP tx today as pt has accomplished her tx goals and no longer meets criteria for IOP level of care.? Narrative Note: []
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
--- NOTE | 2022-05-24 12:17 | BH.IGGP_ITS ---
Aftercare Plan - Demographics Treatment End Date:: 05/24/22 Psychiatrist:: Carlota Troy Psychiatrist Office #:: [phone] [facility] Therapist:: Amy Bravo Therapist Phone #:: [phone] - Plan Details Progress/Aftercare Plan Details:: Pt has made significant strides since starting IOP as shown by her improved mood, reduced symptoms by 33% overall, no longer reporting passive suicidal ideations, and increased ability to manage negative thinking, relationship conflict, and daily stressors. Pt's depression decreased by 50% since admission and anxiety has decreased by 42%. When Pt started IOP she was experiencing significant anxiety and depression that was keeping pt from living life and impacting her functioning both at home and in her relationships. Now, Pt can catch and manage thoughts that reinforced anxiety, irritability, and guilt causing increased suicidal ideation. Pt not only has the ability to more effectively use healthy coping skills, she also reports she feels more confident in her ability to ask for her needs to be met, set boundaries, and in healthy decision making. Pt is focusing on her goals of continuing to gain more independence and practice self-care. Pt was highly active in both group and individual therapy sessions. Pt contributed to group discussions, offered emotional support to peers, and consistently followed through with her goals. In individual sessions, Pt was receptive to feedback, consistent with homework, and willing to push herself. Pt?s high motivation, willingness to challenge her perspective, and honesty were likely the reason for her significant progress. Pt plans to attend [facility] aftercare, as well as follow up with outpatient providers. Strategies for Success:: ?Opposite Action!!! ? do what will help you, even when your brain is saying don?t do it, even when it feels uncomfortable, even when you are tempted to take the easy or more comfortable way out. ?Setting and following through with boundaries with yourself and others ? remember not to take on things that may be causing you unnecessary extra stress. It?s okay to not fix things for others sometimes. You can still be a support to others and not take on everything for yourself. ?Continue to challenge negative thought patterns by trying to look at things from the other perspective, asking yourself ?Am I using a distortion?? or ?Is there another way to approach or think about this??. ?Keep reaching out to HEALTHY friends and supports! There are people who care and want to see you doing well! Remember, it?s okay to ask for help. We all need it from time to time. Remember, your supports are there for you to reach out to. ?Continue to make time for yourself! Self-care is marques to maintaining progress and staying level! This includes sometimes doing those hard things that may require setting boundaries of using opposite action. Remind yourself you deserve to take time to care for you AND ASK YOURSELF ?What would I be losing if I didn?t do this for myself??. ?Small steps to physical, mental, and emotional wellness. Check-in with yourself regularly in order to identify what may be stressing you out, allow yourself to take small breaks if you find yourself getting overwhelmed. Don?t forget to keep setting SMART goals! - Appointments Appointments/Referrals to Other Services:: Pt will follow up with her outpatient psychiatrist, Dr. Maddox, for ongoing medication management. Pt plans to attend [facility] aftercare, as well as follow up with outpatient counselor, Evangelina, at [facility] whom she sees weekly. - Medications Home Medications: Home Medications alprazolam 2 mg tablet (Xanax) 2 mg PO BID PRN PRN Anxiety 03/30/22 baclofen 10 mg tablet 10 mg PO TID PRN PRN Mouth Pain 03/30/22 buspirone 30 mg tablet 30 mg PO BID PRN PRN Anxiety 03/30/22 levothyroxine 137 mcg tablet 137 mcg PO DAILY 03/30/22 metoprolol tartrate 25 mg tablet 25 mg PO BREAKFAST 03/30/22 metoprolol tartrate 25 mg tablet 50 mg PO QHS 03/30/22 pregabalin 150 mg capsule (Lyrica) 150 mg PO QHS 03/30/22 pregabalin 150 mg capsule (Lyrica) 300 mg PO BREAKFAST 03/30/22 vortioxetine 10 mg tablet (Trintellix) 10 mg PO DAILY 30 days #30 tabs 05/04/22 duloxetine 30 mg capsule,delayed release (Cymbalta) 30 mg PO DAILY 30 days #30 caps 05/11/22
--- NOTE | 2022-05-25 09:47 | BH.COMM ---
Communication Note - Communication with Client Communication Note: Pt called in requesting IOP psychiatrist notes and d/c summary be sent to her outpatient psychiatrist Dr. Maddox. Pt gave verbal permission and fax number for provider.
== END 2022-05-24 12:09 | disposition home or self-care (01) ==
LOC: BHIOP 07:28
PROVIDERS: Referring Provider Psychiatry & Neurology Psychiatry; Visit Provider Psychiatry & Neurology Psychiatry
DX: F33.1 Major depressive disorder, recurrent, moderate (principal); F43.10 Post-traumatic stress disorder, unspecified; F41.1 Generalized anxiety disorder; Z79.899 Other long term (current) drug therapy
CPT/HCPCS: S9480; 90834; 90853

== ENCOUNTER 2022-06-16 08:00 | Outpatient (RCR) | payer MEDICARE, MEDICAID, SELFPAY ==
--- NOTE | 2022-06-16 14:00 | BH.SGPN.GN ---
Behaviors/Verbalizations/Mental Status: []Client alert and oriented, casually dressed. Eye contact good. Motor activity appropriate. Speech within normal limits. Affect full and bright, mood euthymic and anxious. Thoughts linear, logical, no signs of hallucinations or delusions. Client Response/Progress/Benefit: []Client receptive of session, engaged and providing supportive feedback throughout group. Reports feeling ?confused? today and shared this is related to ongoing trauma treatment she is doing. Reports she is meeting regularly with outpatient therapist and psychiatrist, and is taking medication as prescribed. Identified skills she has been using as opposite action, boundary setting, and positive self-talk. Client engaged in the discussion about self-love and worked with the group to identify strategies for increasing self-love. Reports wanting to work on self-love by reminding herself to ?forgive myself?. Seemed to benefit from reviewing treatment progress and strategies for managing current stressors, as well as learning about how to increase self-love. Client will continue in aftercare for ongoing maintenance and further skill development. Narrative Note: []
--- NOTE | 2022-06-16 14:00 | BH.COMM ---
Communication Note - Communication with Client Communication Note: Presented completed IOP and presents today to starting relapse prevention group which meets once weekly (1.5 hours) for 8 weeks. Case discussed with Dr. Henao with plan to admit with dx of F33.2
--- NOTE | 2022-06-23 14:00 | BH.SGPN.GN ---
Behaviors/Verbalizations/Mental Status: []Client alert and oriented, casually dressed and groomed. Eye contact good. Motor activity appropriate. Speech within normal limits. Affect congruent, mood euthymic and anxious. Thoughts linear, logical, no signs of hallucinations or delusions. Client Response/Progress/Benefit: []Receptive of session, reports feeling ?happy? today. Shared she has been attending regular outpatient counseling and psychiatry appointments, as well as maintaining medication compliance. Noted however struggling to maintain consistent with coping skill application, especially healthy boundaries and self-advocacy. Shared continuing to struggle with use of people pleasing to avoid conflict with supports. Insight into importance of consistent skill use. Engaged and attentive during discussion of vulnerability and benefits of practicing vulnerability. Shared being vulnerable has not been easy for her as she struggles to sit with uncomfortable emotions. Group discussed ways we avoid feeling vulnerable and how this negatively affects mental health and relationships. Appeared to benefit from group support and discussion reflecting on the positive impact vulnerability can have on mental health. Identified plans to challenge herself to speak up more about her mental health needs to supports as a way in which she could practice being vulnerable in the next week. Will continue IOP aftercare to promote gains and reinforce healthy coping skills. Narrative Note: []
--- NOTE | 2022-07-01 14:00 | BH.SGPN.GN ---
Behaviors/Verbalizations/Mental Status: []Pt alert and oriented, casually dressed and groomed. Eye good. Motor activity appropriate. Speech within normal limits. Affect congruent. Mood depressed, anxious. Thoughts linear, logical, no signs of hallucinations or delusions. Client Response/Progress/Benefit: []Pt responded well to session, attentive and engaged. Pt stated she saw her outpatient therapist this week and is scheduled to see psychiatrist in a couple of months. Pt stated this last week has been rough. Pt reported she feels like she hit rock bottom again. Pt shared she has chosen to move out of her mom's house because realized staying there was slowly killing me. Pt receptive to feedback and support from group. Encouraged by therapist to go back to basics of taking care of self and using her coping skills learned in IOP. Pt responded well to the discussion of gratitude and the benefits to mental health and relationships. Pt identified different things to focus on each day for the next 7 days to practice gratitude towards self and others. Pt shared she will practice reflecting on smell she loves, lesson learned, and positive people in her life to practice gratitude over the next week. Pt recommended ongoing IOP aftercare to promote gains made in IOP and reinforce healthy coping skills.
== END 2022-07-05 23:59 ==
LOC: BHOG 08:00
PROVIDERS: Referring Provider Psychiatry & Neurology Psychiatry; Visit Provider Psychiatry & Neurology Psychiatry
DX: F33.2 Major depressive disorder, recurrent severe without psychotic features (principal)
CPT/HCPCS: 90853

== ENCOUNTER 2022-07-06 06:34 | Outpatient (RCR) | payer MEDICARE, MEDICAID, SELFPAY | END 2022-08-02 13:16 | disposition home or self-care (01) | LOC: BHOG 06:34 | PROVIDERS: Referring Provider Psychiatry & Neurology Psychiatry; Visit Provider Psychiatry & Neurology Psychiatry | DX: F33.2 Major depressive disorder, recurrent severe without psychotic features (principal) ==

== ENCOUNTER → 2024-12-04 | Outpatient (CLI) | payer MEDICARE, MEDICAID, SELFPAY ==
--- NOTE | 2024-12-04 12:58 | US_ITS ---
PROCEDURE: ABD LIMITED W/ ELASTOGRAPHY REASON FOR EXAM: FATTY LIVER, ELEVATED LFTS COMPARISON: None. TECHNIQUE: Right upper quadrant abdominal ultrasound. [facility]inta ElastQ Imaging shear wave elastography for non-invasive assessment of liver tissue stiffness. Jacinta EPIQ Elite. FINDINGS: LIVER: Size: Unremarkable Length: 14.8 cm Echotexture: Diffusely echogenic suggesting fatty infiltration Contour: Normal Lesions: None identified Elastography: EQI Med: 11.1 kPa EQI Med Evan: 1.91 m/s IQR/Med: 26 %* GALLBLADDER: No stones sludge wall thickening or tenderness. COMMON BILE DUCT: Normal measuring 3.8 mm . PANCREAS: Normal Visualized portions of the right kidney are unremarkable. No right upper quadrant ascites. US/ABD Limited w/ Elastography IMPRESSION: MODERATE TO SEVERE HEPATIC FIBROSIS Fatty infiltration of the liver. Reference Values: SRU <1.37 m/s (5.7kPa): No to mild fibrosis 1.37 m/s - 2.2 m/s: Moderate to severe fibrosis >2.2 m/s (15kPa): Significant fibrosis / cirrhosis METAVIR Score F2 or higher: 1.34 m/s (5.7kPa) F3 or higher: 1.55 m/s (7.3kPa) F4: 1.80 m/s (10kPa) * If the IQR/Med is >30%, the variance in the measurements is a large and the a ccuracy of the measurement may be in question. Reading Location: [id number]
== END | disposition home or self-care (01) ==
LOC: US 12:51
PROVIDERS: Referring Provider Internal Medicine; Visit Provider Internal Medicine
DX: K76.0 Fatty (change of) liver, not elsewhere classified (principal); R79.89 Other specified abnormal findings of blood chemistry
CPT/HCPCS: 76705; 76981